=== PATIENT | female | born 1980 | race African-American/Black ===

== ENCOUNTER 2017-02-08 06:50 | Emergency (ER) | payer BC ==
[~2017-02-08 06:50] MED LIST: FISH OIL; METFORMIN; NORMODYNE; SAXENDA3 MG/0.5 M; VITAMIN D
[2017-02-08 07:31] LABS: INFLUENZA A NEG (NEG); INFLUENZA B NEG (NEG)
== END 2017-02-08 08:19 | disposition home or self-care (01) ==
LOC: SED 06:50
PROVIDERS: Emergency Medicine
DX: J06.9 Acute upper respiratory infection, unspecified (principal); H10.9 Unspecified conjunctivitis; E11.9 Type 2 diabetes mellitus without complications; Z90.49 Acquired absence of other specified parts of digestive tract
CPT/HCPCS: 87651; 87804; 99283

== ENCOUNTER 2017-02-21 08:49 | Emergency (ER) | payer BC | END 2017-02-21 09:55 | disposition home or self-care (01) | LOC: SED 08:49 | DX: J04.0 Acute laryngitis (principal); J06.9 Acute upper respiratory infection, unspecified | CPT/HCPCS: 87651; 99283 ==

== ENCOUNTER → 2017-04-24 | Outpatient (CLI) | payer BC ==
--- NOTE | ~2017-04-24 | CT3 ---
[facility] A Service of [facility] & [facility] RADIOLOGY TEXT RESULTS PATIENT: MONROE COLE LOCATION: SCT : 82 UNIT #: [id number] AGE: [address]: Rad Rdz MD SEX: F ORDER DR: [id number] [address] [address] [id number] O MR#: [id number] Acc #: [id number] NAME: MONROE COLE : 1980 SEX: F STUDY DATE/TIME: 04/24/2017 13:41 UNIT: SCT ROOM: STUDY DESCRIPTION: CT Abd and Pelv WWo Cont Attending Physician: Rad Rdz M.D. Referring Physician: Rad Rdz M.D. Ordering Physician: Rad Rdz M.D. Primary Care Physician: Primary Care Physician No MEDICAL IMAGING REPORT This report is preliminary unless electronic signature is present. EXAM CT scan of the abdomen and pelvis with and without contrast HISTORY Hematuria, sharp pain in back and right side since night. COMPARISON No comparison. TECHNIQUE This CT exam was performed with one or more of the following radiation dose reduction techniques: automatic exposure control, adjustment of mA and/or kV according to patient size, and iterative reconstruction. FINDINGS Initially unenhanced images were obtained through the abdomen and pelvis then patient given 100 mL of Isovue-370 and arterial phase and 90-second delayed phase images were obtained through the kidneys and finally 5-minute images were obtained through the abdomen and pelvis. FINDINGS The lung bases are clear. There are no urinary stones identified. There is a 5.0 mm low-density lesion seen best on the 90-second delayed images. This is likely a small cyst. This is in the right kidney. Otherwise the kidneys are normal in appearance. The liver, spleen, pancreas, adrenal glands and aorta are normal. The gallbladder has been removed. The bowel is normal. The uterus and adnexal regions are normal. The bladder appears normal. The bones are unremarkable. Patient size is so large that a large portion of the anterior abdominal fat is excluded. IMPRESSION 1. There is a 5.0 mm low-density lesion seen on the right kidney consistent with a small cyst. There are no stones or masses [facility] A Service of [facility] & [facility] RADIOLOGY TEXT RESULTS PATIENT: MONROE COLE LOCATION: [facility] : [birth year] UNIT #: [id number] AGE: [address]: Rad Rdz MD SEX: F ORDER DR: identified. 2. Prior cholecystectomy. 3. Otherwise the study is normal. Dictated by... Yazan Helton M.D. THIS IS AN ELECTRONICALLY VERIFIED REPORT Yazan Helton M.D. at 04/27/2017 1:22 PM Rylan TD: 04/27/2017 10:25 JOB #: [id number] MEDICAL IMAGING REPORT Page 1 of 1
[2017-04-24 13:40] LABS: POC - CREATININE 0.93 mg/dL (0.44-1.03); POC - GFR >60.0 mL/min (>60)
== END | disposition home or self-care (01) ==
LOC: SCT 13:19
PROVIDERS: Urology
DX: R31.0 Gross hematuria (principal); N28.9 Disorder of kidney and ureter, unspecified; Z90.49 Acquired absence of other specified parts of digestive tract
CPT/HCPCS: 74178; 82565; Q9967

== ENCOUNTER → 2017-06-07 | Outpatient (CLI) | payer BC ==
--- NOTE | ~2017-06-07 | US98 ---
[facility] A Service of [facility] RADIOLOGY TEXT RESULTS PATIENT: MONROE COLE LOCATION: [facility] : [birth year] UNIT #: [id number] AGE: [address]: MARJORIE SCHERER APRN SEX: F ORDER DR: [id number] [facility] [address] [place], [place] [address] [id number] O MR#: [id number] Acc #: [id number] NAME: MONROE COLE : 1980 SEX: F STUDY DATE/TIME: 06/07/2017 15:33 UNIT: [facility] ROOM: STUDY DESCRIPTION: US Pelvic Non-OB Complete Attending Physician: Marjorie Scherer Aprn Referring Physician: Marjorie Scherer Aprn Ordering Physician: Marjorie Scherer Aprn Primary Care Physician: Marjorie Scherer Aprn MEDICAL IMAGING REPORT This report is preliminary unless electronic signature is present EXAM Pelvic ultrasound. INDICATIONS Irregular menses since 04/17/2017. PROCEDURE Woodson-scale and Doppler imaging of the pelvis via transabdominal and transvaginal approach. COMPARISON None. FINDINGS Uterus anteverted measures 7.9 x 3.1 x 4.8 cm. The endometrium measures 5 mm in thickness. Right ovary measures up to 4.1 cm and contains a 3.4 x 2.9 cm simple cyst. The left ovary contains a 1.7 cm x 2.6 x 1.8 cm simple cyst. IMPRESSION Simple cysts in both ovaries measuring up to 3.4 cm on the right and 2.6 cm on the left. Given the patient's age, these are probably benign functional cysts but can be followed as deemed clinically appropriate. Dictated by... Qamar Rivero M.D. THIS IS AN ELECTRONICALLY VERIFIED REPORT Qamar Rivero M.D. at 06/09/2017 7:16 AM EAN/ulisses [facility] A Service of [facility] RADIOLOGY TEXT RESULTS PATIENT: MONROE COLE [id number] [birth year] UNIT #: [id number] AGE: [address]: MARJORIE SCHERER APRN SEX: F ORDER DR: TD: 06/08/2017 18:51 JOB #: [id number] MEDICAL IMAGING REPORT Page 1 of 1 COPY
== END | disposition home or self-care (01) ==
LOC: CWCC 06-03 14:00
DX: R10.2 Pelvic and perineal pain (principal); N83.292 Other ovarian cyst, left side; N83.291 Other ovarian cyst, right side
CPT/HCPCS: 76830; 76856